=== PATIENT | female | born 1980 | race Caucasian/White ===

== ENCOUNTER → 2023-12-11 16:14 | Outpatient (REF) | payer BC, SELFPAY | LOC: HWWDC 16:14 | PROVIDERS: ATTENDING PHYSICIAN Obstetrics & Gynecology; FAMILY PHYSICIAN Family Medicine | DX: Z12.31 Encounter for screening mammogram for malignant neoplasm of breast (principal) | CPT/HCPCS: 77063; 77067 ==

== ENCOUNTER → 2024-02-21 08:51 | Outpatient (REF) | payer BC, SELFPAY | LOC: HWRAD 08:51 | PROVIDERS: ATTENDING PHYSICIAN Nurse Practitioner Acute Care; FAMILY PHYSICIAN Family Medicine | DX: M54.16 Radiculopathy, lumbar region (principal) | CPT/HCPCS: 72110; 72131 ==

== ENCOUNTER → 2024-06-19 12:11 | Outpatient (REF) | payer BC, SELFPAY | LOC: HWRAD 12:11 | PROVIDERS: ATTENDING PHYSICIAN Family Medicine | DX: M54.6 Pain in thoracic spine (principal); G89.29 Other chronic pain | CPT/HCPCS: 72070 ==

== ENCOUNTER → 2024-07-03 09:07 | Outpatient (REF) | payer BC, SELFPAY | LOC: HWRAD 09:07 | PROVIDERS: ATTENDING PHYSICIAN Nurse Practitioner Family; FAMILY PHYSICIAN Family Medicine | DX: E03.9 Hypothyroidism, unspecified (principal); E28.2 Polycystic ovarian syndrome; C73 Malignant neoplasm of thyroid gland | CPT/HCPCS: 76536 ==

== ENCOUNTER → 2024-12-14 15:22 | Outpatient (REF) | payer BC, SELFPAY | LOC: HWWDC 15:22 | PROVIDERS: ATTENDING PHYSICIAN Obstetrics & Gynecology; FAMILY PHYSICIAN Family Medicine | DX: Z12.31 Encounter for screening mammogram for malignant neoplasm of breast (principal) | CPT/HCPCS: 77063; 77067 ==

== ENCOUNTER 2024-12-19 14:02 | Emergency (ER) | payer BC, SELFPAY ==
[2024-12-19 14:09] VITALS: BP 113/65
[2024-12-19 14:42] LABS: % Basophils 0.6 % (0-2); % Immature Granulocytes 0.3 % (0-0.5); % Monocytes 6.6 % (1.7-9.3); % Neutrophils 71.5 % (42.2-75.2); Absolute Eosinophils 0.1 10^3/uL (0-0.7); Absolute Lymphocytes 1.4 10^3/uL (1.2-3.4); Absolute Monocytes 0.5 10^3/uL (0.1-0.6); Hematocrit 36.5 % (37.0-47.0); Hemoglobin 12.3 g/dL (12.0-16.0); Mean Corp Hgb Conc. 33.7 g/dL (33.0-37.0); Mean Corpuscular Hgb 30.9 pg (27.0-31.0); Mean Corpuscular Volume 91.7 fL (81.0-99.0); Mean Platelet Volume 10.8 fL (7.4-10.4); Nucleated Red Blood Cells % 0 %; Platelet Count 296 10^3/uL (130-400); Red Blood Cell Count 3.98 10^6/uL (4.20-5.40); Red Cell Dist. Width 12.8 % (11.5-14.5)
[2024-12-19 14:58] LABS: ALT (SGPT) 15 U/L (0-35); AST (SGOT) 25 U/L (14-36); Alkaline Phosphatase 71 U/L (38-126); Blood Urea Nitrogen 12 mg/dl (7-17); Calcium 8.7 mg/dl (8.4-10.2); Carbon Dioxide 25 mmol/L (22-30); Chloride 103 mmol/L (98-107); Glucose 121 mg/dl (70-99); Lipase 252 U/L (23-300); Potassium 4.2 mmol/L (3.5-5.1); Sodium 135 mmol/L (135-145); Total Bilirubin 0.4 mg/dl (0.2-1.3); Total Protein 6.3 g/dl (6.3-8.2); eGFR > 60.00
[2024-12-19 14:59] LABS: Urine Albumin 1+ (Neg - Trace); Urine Bilirubin Negative (Negative); Urine Character Clear (Clear); Urine Color Yellow; Urine Glucose Negative (Negative); Urine Ketone Negative (Negative); Urine Leukocyte Negative (Negative); Urine Nitrite Negative (Negative); Urine Occult Blood Negative (Negative); Urine Urobilinogen Negative (Neg - 1+)
[2024-12-19 15:08] LABS: Troponin I < 0.012 ng/ml
[2024-12-19 15:16] LABS: Urine Mucus Few; Urine Squamous Cell >30 /LPF (Few)
[2024-12-19 15:18] LABS: Urine Bacteria Few (Negative); Urine Red Blood Cell 0-2 /HPF (0-2); Urine White Cell 0-2 /HPF (0-5)
[2024-12-19 16:36] VITALS: BMI 29.6
[2024-12-19 16:41] VITALS: BP 114/65
[2024-12-19 17:00] VITALS: BP 113/71
[2024-12-19 18:00] VITALS: BP 107/69
--- NOTE | 2024-12-19 18:05 | ED.GENMED ---
History of Present Illness
General
Chief Complaint: Abdominal Symptoms
Time Seen by Provider: 12/19/24 17:13
History of Present Illness
History of Present Illness:
44-year-old female with history of gastric bypass presenting to the emergency department for generalized abdominal pain. Patient reports symptoms on and off for the past 3 weeks. She feels that the pain is most prominent in the right upper
quadrant region and radiates to her back. Does note association with food. Also notes pain after urination, described as a pressure. Reports history of hysterectomy in the past. Denies any chest pain or difficulty breathing. Denies fever.
Denies vomiting. Denies changes in stool. She felt the pain worsened today which prompted her to come to the hospital. She denies additional acute medical complaints
Past History
Past History
ED Past Medical History: Hypothyroidism and Other (Fibroids)
ED Past Surgical History: Other (Gastric bypass 2004)
Social History
Tobacco: Non-smoker
Alcohol: None
Drug: None
Personal: Single
Living: with family
Employment: Employed
Family History
Family History: Other (NA)
Phy Exam
Physical Exam
Physical Exam:
General: Well-appearing, no clinical signs of dehydration, nontoxic and in no acute distress
HEENT: protecting airway
Neck: appears supple
CV: Normal heart rate, regular rhythm
Resp: No accessory muscle use, no increased work of breathing, lungs clear to auscultation bilaterally
Abd: Soft and non-distended, mild tenderness in the right upper quadrant without rebound or guarding. Mild tenderness to the epigastric abdomen
Extremities: No deformities, no swelling
Neuro: alert, no focal neurologic deficit
: deferred
Rectal: deferred
Psych: Normal affect
Skin: Intact
Course
Orders/Labs/Results
Orders:
Orders
12/19/24 14:15
Electrocardiogram (*1) Urgent
Reason for Study: Abdominal Pain
EKG- Treatment ONCE
12/19/24 14:24
Complete Blood Count/With Diff Urgent
Comprehensive Metabolic Panel Urgent
Lipase Urgent
Troponin I Urgent
Urinalysis Reflex To Culture Urgent
Date Specimen was Collected: 12/19/24
Time Specimen was Collected: 14:15
Urine Microscopic Reflex Cult Urgent
12/19/24 17:38
US Abdomen Complete/Upper Urgent
Comment:
Reason For Exam: RUQ pain
Abnormal Lab Results
12/19/24
14:24
RBC 3.98 L 10^6/uL
(4.20-5.40)
Hct 36.5 L %
(37.0-47.0)
MPV 10.8 H fL
(7.4-10.4)
Lymphocytes % 20.0 L %
(20.5-51.1)
Glucose 121 H mg/dl
(70-99)
Urine Bacteria (Reflex) Few A
(Negative)
Urine Albumin (Reflex) 1+ A
(Neg - Trace)
12/19/24 14:24
12/19/24 14:24
Vital Signs
Initial and Last Documented VS:
Initial Vital Signs
Temp Pulse Resp BP Pulse Ox
98.4 F 109 18 113/65 100
12/19/24 14:09 12/19/24 14:09 12/19/24 14:09 12/19/24 14:09 12/19/24 14:09
Last Documented Vital Signs
Temp Pulse Resp BP Pulse Ox
98.6 F 76 15 107/69 100
12/19/24 16:41 12/19/24 18:00 12/19/24 18:00 12/19/24 18:00 12/19/24 18:00
MDM/Problems Addressed
MDM/Problems Addressed:
44-year-old female with history of gastric bypass presenting for right upper abdominal pain for 3 weeks. Vital signs on arrival are significant for mild tachycardia, however resolved without intervention.
On exam, patient is resting comfortably, no acute distress or discomfort. She is nontoxic in appearance. Mild tenderness to the right upper quadrant abdomen without rebound or guarding. Mild tenderness to the epigastric abdomen. Ultimately
suspect GERD versus gastritis versus cholecystitis versus cholelithiasis. Given duration of symptoms, lower suspicion for serious intra-abdominal process or infection. Patient had screening laboratory analysis prior to my assessment, no
leukocytosis, normal electrolyte panel. Normal T. bili and liver enzymes. Urine without sign of infection or blood without concern for kidney stone. Given location of pain, will screen with right upper quadrant ultrasound imaging.
20:00 -ultrasound within normal limits. On reassessment patient remains hemodynamically stable with benign abdominal exam. Did offer CT abdominal imaging, however expressed low utility given her examination. Patient will prefer to follow-up with
her doctor. At this time suspect possible musculoskeletal quality to symptoms, versus mild gastritis. Patient is on Wegovy. Return precautions discussed and patient verbalized understanding
*Critical Care Note
Total Time (30-74mins, 75-104mins- exclusive of procedures): Not Applicable
ED Attending Note
-
Portions of this chart may have been created with voice recognition software.� Occasional wrong word or��sound alike� substitutions may have occurred due to the inherent limitations of voice recognition software.
Discharge Plan
Departure
Prescriptions:
No Action
esomeprazole magnesium [Nexium] 40 MG capsule,delayed release(DR/EC)
80 mg PO DAILY
multivitamin Tablet
1 tab PO DAILY@1400
hydrochlorothiazide 25 mg Tablet
25 mg PO DAILY
calcium carbonate-vitamin D3 500 mg-3.125 mcg (125 unit) Tablet
1 tab PO DAILY
levothyroxine [Tirosint] 88 mcg Capsule
88 mcg PO DAILY
famotidine [Pepcid] 40 mg Tablet
80 mg PO HS
metformin 500 mg Tablet Extended Release 24hr
500 mg PO DAILY
acetaminophen 325 mg Tablet
650 mg PO Q4HPRN PRN (Reason: mild pain) Qty: 0 0RF
hydromorphone 2 mg Tablet
2 mg PO Q4HPRN PRN (Reason: mild postoperative pain) Qty: 10 0RF
docusate sodium 100 mg Capsule
100 mg PO BID Qty: 60 0RF
gabapentin 100 mg Capsule
300 mg PO TID Qty: 60 0RF
ibuprofen [IBU] 600 mg tablet
600 mg PO Q6H PRN (Reason: pain) Qty: 60 0RF
nitrofurantoin monohyd/m-cryst [Macrobid] 100 mg capsule
100 mg PO DAILY 5 Days Qty: 5 0RF
Rx Instructions:
UTI prophylaxis
Referrals:
José Miguel Mayers Jr., DO [Family Provider] -
Interventions
Interventions:
*Risk Screen - Suicide Last Done: 12/19/24 14:09
*General Assessment Last Done: 12/19/24 14:09
*Neglect/Abuse Screening Last Done: 12/19/24 14:09
*ED COVID-19 Vaccine History Last Done: 12/19/24 16:42
LU-Rpbbsn-Ibyrpborbi Assessment Last Done: 12/19/24 16:43
Discharge Date and Time
Print Language: FRENCH
[2024-12-19 19:00] VITALS: BP 109/73
== END 2024-12-19 20:44 | disposition home or self-care (01) ==
LOC: EMR 14:02
PROVIDERS: Student in an Organized Health Care Education/Training Program; EMERGENCY PHYSICIAN Student in an Organized Health Care Education/Training Program; FAMILY PHYSICIAN Family Medicine
DX: R10.11 Right upper quadrant pain (principal); R30.0 Dysuria; M54.9 Dorsalgia, unspecified; E03.9 Hypothyroidism, unspecified; Z98.84 Bariatric surgery status; Z88.1 Allergy status to other antibiotic agents; Z91.040 Latex allergy status; Z88.5 Allergy status to narcotic agent; Z91.048 Other nonmedicinal substance allergy status
CPT/HCPCS: 99285; 76700; 80053; 81003; 81015; 83690; 84484; 85025; 93005

== ENCOUNTER → 2024-12-21 09:00 | Outpatient (REF) | payer BC, SELFPAY | LOC: WDC 09:00 | PROVIDERS: ATTENDING PHYSICIAN Obstetrics & Gynecology; FAMILY PHYSICIAN Family Medicine | DX: R92.8 Other abnormal and inconclusive findings on diagnostic imaging of breast (principal) | CPT/HCPCS: 76642 ==

== ENCOUNTER 2025-03-04 06:23 | Day surgery (SDC) | payer BC, SELFPAY | END 2025-03-04 13:05 | disposition home or self-care (01) | LOC: GI 06:23 | PROVIDERS: ATTENDING PHYSICIAN Specialist | DX: R10.13 Epigastric pain (principal); Z98.84 Bariatric surgery status; K31.89 Other diseases of stomach and duodenum; K92.2 Gastrointestinal hemorrhage, unspecified | CPT/HCPCS: 43239; 88305; 88342 ==

== ENCOUNTER → 2025-06-25 09:22 | Outpatient (REF) | payer BC, SELFPAY | LOC: HWRAD 09:22 | PROVIDERS: ATTENDING PHYSICIAN Nurse Practitioner Family; FAMILY PHYSICIAN Family Medicine | DX: C73 Malignant neoplasm of thyroid gland (principal) | CPT/HCPCS: 76536 ==

== ENCOUNTER 2025-09-01 19:33 | Emergency (ER) | payer BC, SELFPAY ==
[2025-09-01 19:35] VITALS: BP 126/96
[2025-09-01 19:54] LABS: Hematocrit 34.7 % (37.0-47.0); Hemoglobin 11.8 g/dL (12.0-16.0); Mean Corp Hgb Conc. 34.0 g/dL (33.0-37.0); Mean Corpuscular Volume 90.1 fL (81.0-99.0); Nucleated Red Blood Cells % 0 %; Platelet Count 290 10^3/uL (130-400); Red Cell Dist. Width 11.9 % (11.5-14.5)
[2025-09-01 20:16] LABS: ALT (SGPT) 13 U/L (0-35); AST (SGOT) 25 U/L (14-36); Albumin 4.2 g/dl (3.5-5.0); Alkaline Phosphatase 52 U/L (38-126); Blood Urea Nitrogen 15 mg/dl (7-17); Calcium 8.6 mg/dl (8.4-10.2); Carbon Dioxide 27 mmol/L (22-30); Chloride 100 mmol/L (98-107); Glucose 103 mg/dl (70-99); Potassium 3.9 mmol/L (3.5-5.1); Sodium 133 mmol/L (135-145); Total Protein 6.6 g/dl (6.3-8.2); eGFR > 60.00
[2025-09-01 21:01] VITALS: BMI 28.4
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
[2025-09-01 22:47] VITALS: BP 99/71
[2025-09-01] MEDS: BENADRYL 25 MG IV (22:50)
[2025-09-01] MEDS: NSS 1000 IV (22:51)
[2025-09-01] MEDS: TORADOL 15 MG IV (22:51)
[2025-09-01] MEDS: COMPAZINE 10 MG IV (22:51)
[2025-09-01 23:04] LABS: COVID-19 Antigen Negative (Negative)
[2025-09-02 00:52] VITALS: BP 112/72
[2025-09-02] MEDS: DECADRON 10 MG IV (00:53)
[2025-09-02] MEDS: TORADOL 15 MG IV (00:53)
[2025-09-02 03:15] VITALS: BP 115/73
== END 2025-09-02 03:20 | disposition home or self-care (01) ==
LOC: EMR 19:33
PROVIDERS: Emergency Medicine; EMERGENCY PHYSICIAN Emergency Medicine; FAMILY PHYSICIAN Family Medicine
DX: G43.909 Migraine, unspecified, not intractable, without status migrainosus (principal); E78.00 Pure hypercholesterolemia, unspecified; E89.0 Postprocedural hypothyroidism; Z98.84 Bariatric surgery status; Z90.710 Acquired absence of both cervix and uterus; Z85.850 Personal history of malignant neoplasm of thyroid; Z11.52 Encounter for screening for COVID-19
CPT/HCPCS: 96374; 96375; 96376; 96361; 99284; 70450; 80053; 85025; 85652; 87811